=== PATIENT | male | born 1960 | race Caucasian/White ===

== ENCOUNTER 2016-11-26 14:12 | Emergency (ER) | payer OTHER ==
[~2016-11-26] VITALS: Ht 170.2 cm; Wt 72.8 kg
[~2016-11-26 14:12] MED LIST: ADVAIR 250/501 DISK IH; ALBUTEROL1.25 MG/3 IH; ALPRAZOLAM0.25 M2 PO; ALPRAZOLAM1 MG PO; AMITRIPTYLINE H25 MG PO; AMLODIPINE BESYL5 MG PO; AMOXICILLIN500 M1 PO; ASPIRIN325 MG PO; ATROVENT 00.5 MG/2.5 IH; AUGMENTIN XR1000 MG PO; AUGMENTIN500 MG PO; Amoxicillin PO; BACTRIM,SEPT1 TABLET PO; BISACODYL SUPP10 MG PR; COMBIVENT RESPIM4 GM IH; DOCUSATE SODIU100 MG PO; DUONEB 2.5-0.5 M3 ML IH; Diflucan PO; FENOFIBRATE145 M1 PO; GABAPENTIN400 MG PO; GLUCOPHAGE1000 MG PO; IBUPROFEN200 M1 PO; JANUVIA25 M1 PO; KEFLEX500 MG PO; KLONOPIN0.5 M1 PO; LEVAQUIN750 MG PO; LEVEMIR FL100 UNIT/1 SC; LEVOFLOXACIN750 MG PO; LISINOPRIL20 MG PO; LISINOPRIL40 MG PO; METFORMIN HCL1000 MG PO; METFORMIN HCL500 MG PO; METHADONE PO; METHADOSE10 MG/1 ML PO; MILK OF MAGNESI10 ML PO; MUCINEX600 MG PO; NEURONTIN300 MG PO; NORVASC2.5 MG PO; NORVASC5 MG PO; OXYCODONE HCL5 MG PO; PERCOCET 5/31 TABLET PO; PREDNISONE20 MG PO; PRINIVIL20 MG PO; PROVENTIL HFA6.7 GM IH; SENNA8.6 MG PO; SERTRALINE HCL100 MG PO; SIMVASTATIN20 MG PO; SIMVASTATIN40 MG PO; SPIRIVA RESPIMAT4 GM IH; SPIRIVA1 INHALATI IH; TEMAZEPAM15 MG PO; TRIPLE ANTIB28.35 GM TP; Tylenol Regular Stre PO; VENTOLIN HFA18 GM IH; XANAX0.5 MG PO; XANAX1 MG PO; XOPENEX HF200 INHALA IH; ZITHROMAX250 MG PO; ZOLOFT100 MG PO; ZOLOFT25 MG PO; ZOLOFT50 MG PO; methadone PO
[2016-11-26 15:43] VITALS: BP 110/57
== END 2016-11-26 16:04 | disposition left against medical advice (07) ==
LOC: EME 14:12
DX: T40.3X1A Poisoning by methadone, accidental (unintentional), initial encounter (principal); T40.2X1A Poisoning by other opioids, accidental (unintentional), initial encounter; E11.9 Type 2 diabetes mellitus without complications; I10 Essential (primary) hypertension; F17.200 Nicotine dependence, unspecified, uncomplicated; Z71.6 Tobacco abuse counseling
CPT/HCPCS: 80053; 85025; 93005; 99281; 99283; G0480; J2310; J7030